=== PATIENT | female | born 1990 ===

== ENCOUNTER 2021-06-24 13:21 | Inpatient (IN) | payer OTHER ==
[~2021-06-24] VITALS: Ht 162.6 cm; Wt 3.2 kg
[2021-06-24] MEDS ORDERED: PROBIOTIC1 EACH PO (15:20)
[2021-06-24] MEDS ORDERED: PRENATAL CAPLE1 EAC1 PO (15:20)
[2021-06-28] MEDS ORDERED: HYOSCYAMINE0.125 M1 SL (07:33)
[2021-06-28] MEDS ORDERED: IBUPROFEN600 MG PO (07:33)
[2021-06-28] MEDS ORDERED: OBTREX DHA COM1 EACH PO (07:34)
== END 2021-06-28 11:31 | disposition home or self-care (01) | DRG 788 ==
LOC: OB/GYN 13:21 → LDR 13:21 → OB/GYN 18:56
PROVIDERS: ADMIT Obstetrics & Gynecology; ATTEND Obstetrics & Gynecology
PROC: 4A1HXFZ Monitoring of Products of Conception, Cardiac Rhythm, External Approach (ICD-10-PCS; 2021-06-25)
PROC: 10D00Z1 Extraction of Products of Conception, Low, Open Approach (ICD-10-PCS; principal; 2021-06-25 16:00)
DX: O13.4 Gestational [pregnancy-induced] hypertension without significant proteinuria, complicating childbirth (principal); O42.02 Full-term premature rupture of membranes, onset of labor within 24 hours of rupture; O99.824 Streptococcus B carrier state complicating childbirth; Z53.29 Procedure and treatment not carried out because of patient's decision for other reasons; Z3A.38 38 weeks gestation of pregnancy; Z37.0 Single live birth